=== PATIENT | male | born 1990 | race Caucasian/White ===

== ENCOUNTER 2017-12-19 21:06 | Inpatient (IN) | payer MEDICAID ==
[~2017-12-19] VITALS: Ht 180.3 cm; Wt 70.4 kg
[2017-12-19 22:18] LABS: AMPHET/METH SCREEN,URINE NEGATIVE (NEGATIVE); BARBITURATE SCREEN, URINE NEGATIVE (NEGATIVE); BENZODIAZEPINES SCREEN,URINE NEGATIVE (NEGATIVE); CANNABINOID SCREEN,URINE NEGATIVE (NEGATIVE); COCAINE SCREEN,URINE NEGATIVE (NEGATIVE); METHADONE SCREEN, URINE NEGATIVE (NEGATIVE); OPIATE SCREEN,URINE NEGATIVE (NEGATIVE); PHENCYCLIDINE SCREEN,URINE NEGATIVE (NEGATIVE)
[2017-12-19] MEDS ORDERED: BENZ1TAB10 PO (22:18)
[2017-12-19] MEDS ORDERED: PROP20TA18 PO (22:18)
[2017-12-19] MEDS ORDERED: OLAN10TA3 PO (22:18)
[2017-12-19] MEDS ORDERED: LITH600 PO (22:18)
[2017-12-19 22:20] LABS: BASOPHILS % (AUTO) 0.6 % (0.0-2.0); EOSINOPHILS % (AUTO) 4.8 % (1.0-6.0); HEMATOCRIT 42.1 % (41-53); HEMOGLOBIN 14.8 g/dL (13.5-17.5); LYMPHOCYTES # (AUTO) 1.9 K/uL (1.0-4.8); LYMPHOCYTES % (AUTO) 21.5 % (22.0-44.0); MEAN CORPUSCULAR HEMOGLOBIN 30.4 pg (26.0-34.0); MEAN CORPUSCULAR HGB CONC 35.1 G/dL (31.0-37.0); MEAN CORPUSCULAR VOLUME 87 fL (80-100); MONOCYTES # (AUTO) 0.7 K/uL (0.1-1.0); MONOCYTES % (AUTO) 7.6 % (2.0-9.0); NEUTROPHILS # (AUTO) 5.9 K/uL (1.8-7.7); NEUTROPHILS % (AUTO) 65.5 % (40.0-70.0); PLATELET COUNT (AUTO) 237 K/uL (150-450); RED BLOOD CELL COUNT(AUTO) 4.85 MIL/uL (4.50-5.90); RED CELL DISTRIBUTION WIDTH 12.7 % (11.5-14.5)
[2017-12-19 22:28] LABS: ANION GAP 5 mmol/L (8-16); CALCIUM, TOTAL 9.1 mg/dL (8.8-10.5); CARBON DIOXIDE 30 mmol/L (22-29); CHLORIDE 104 mmol/L (98-107); CREATININE 0.91 mg/dL (0.60-1.30); GLOMERULAR FILTR. RATE CALC > 60 mL/min (>60); GLUCOSE,RANDOM 96 mg/dL (70-110); SODIUM SERUM 139 mmol/L (136-145); UREA NITROGEN, BLOOD 14 mg/dL (7-18)
[2017-12-19 22:33] LABS: ALANINE AMINOTRANSFERASE 18 U/L (12-78); ALBUMIN 4.2 g/dL (3.4-5.0); ALKALINE PHOSPHATASE 83 U/L (46-116); ASPARTATE AMINOTRANSFERASE 17 U/L (15-37); BILIRUBIN,TOTAL 0.5 mg/dL (0.1-1.0); LITHIUM 1.37 mmol/L (0.60-1.20); TOTAL PROTEIN, SERUM 7.4 g/dL (6.4-8.2)
[2017-12-19 22:34] LABS: ACETAMINOPHEN < 2 mcg/mL (10-30); SALICYLATE 1.3 mg/dL (2.8-20.0)
[2017-12-19] MEDS ORDERED: ONDANSETRON HCL 4 MG/2 ML VIAL IVP PRN (23:00)
[2017-12-19] MEDS ORDERED: 0.9% SODIUM CHLORIDE 10 ML SYRINGE IVP PRN (23:00)
[2017-12-19] MEDS ORDERED: ACETAMINOPHEN 325 MG TABLET PO PRN (23:00)
[2017-12-20] VITALS (7 sets, daily range): BP systolic 100–130; BP diastolic 50–75
[2017-12-20] MEDS ORDERED: 0.9% SODIUM CHLORIDE 10 ML SYRINGE IVP PRN (01:15)
[2017-12-20] MEDS ORDERED: ACETAMINOPHEN 325 MG TABLET PO PRN (01:15)
[2017-12-20] MEDS ORDERED: OxyCODONE HCL/ACETAMINOPHEN 5-325 MG TABLET PO PRN ×2 (01:15)
[2017-12-20] MEDS ORDERED: MAGNESIUM HYDROXIDE SUSPENSION 30 ML UDCUP PO PRN (01:15)
[2017-12-20] MEDS ORDERED: ONDANSETRON HCL 4 MG/2 ML VIAL IVP PRN (01:15)
[2017-12-20] MEDS ORDERED: SODIUM CHLORIDE 0.9% 1,000 ML IV SCH (01:15)
[2017-12-20] MEDS: DOCUSATE SODIUM 100 MG CAPSULE PO SCH ×3 (01:15→19:53)
[2017-12-20] MEDS ORDERED: PANTOPRAZOLE SODIUM 40 MG/VIAL IVP SCH (09:00)
[2017-12-20] MEDS ORDERED: DSS100 PO (13:56)
[2017-12-20] MEDS ORDERED: MOM30 PO (13:57)
[2017-12-20] MEDS ORDERED: ACET-784 PO (13:57)
[2017-12-21 05:00] VITALS: BP 111/64
[2017-12-21 07:06] LABS: BASOPHILS % (AUTO) 0.7 % (0.0-2.0); EOSINOPHILS % (AUTO) 3.9 % (1.0-6.0); HEMATOCRIT 41.6 % (41-53); HEMOGLOBIN 14.6 g/dL (13.5-17.5); LYMPHOCYTES # (AUTO) 1.7 K/uL (1.0-4.8); LYMPHOCYTES % (AUTO) 21.9 % (22.0-44.0); MEAN CORPUSCULAR HEMOGLOBIN 31.2 pg (26.0-34.0); MEAN CORPUSCULAR VOLUME 89 fL (80-100); MONOCYTES # (AUTO) 0.7 K/uL (0.1-1.0); MONOCYTES % (AUTO) 8.8 % (2.0-9.0); NEUTROPHILS # (AUTO) 5.1 K/uL (1.8-7.7); NEUTROPHILS % (AUTO) 64.7 % (40.0-70.0); PLATELET COUNT (AUTO) 213 K/uL (150-450); RED BLOOD CELL COUNT(AUTO) 4.67 MIL/uL (4.50-5.90); RED CELL DISTRIBUTION WIDTH 12.9 % (11.5-14.5)
[2017-12-21 07:13] VITALS: BP 115/75
[2017-12-21 07:20] LABS: ANION GAP 5 mmol/L (8-16); CALCIUM, TOTAL 8.5 mg/dL (8.8-10.5); CARBON DIOXIDE 29 mmol/L (22-29); CHLORIDE 105 mmol/L (98-107); GLOMERULAR FILTR. RATE CALC > 60 mL/min (>60); GLUCOSE,RANDOM 93 mg/dL (70-110); POTASSIUM 4.2 mmol/L (3.5-5.1); SODIUM SERUM 139 mmol/L (136-145); UREA NITROGEN, BLOOD 14 mg/dL (7-18)
[2017-12-21] MEDS: DOCUSATE SODIUM 100 MG CAPSULE PO SCH ×2 (08:00→19:46)
[2017-12-21 10:58] VITALS: BP 113/81
[2017-12-21 15:03] VITALS: BP 104/69
[2017-12-21 19:13] VITALS: BP 124/75
[2017-12-21] MEDS: OLANZapine 10 MG TABLET PO SCH (19:45)
[2017-12-22 00:54] VITALS: BP 99/57
[2017-12-22 05:56] VITALS: BP 126/58
[2017-12-22 07:43] VITALS: BP 129/71
[2017-12-22] MEDS: DOCUSATE SODIUM 100 MG CAPSULE PO SCH ×3 (09:00→20:19)
[2017-12-22] MEDS: BENZTROPINE MESYLATE 1 MG TABLET PO SCH (09:19)
[2017-12-22 11:34] VITALS: BP 116/62
[2017-12-22 15:24] VITALS: BP 124/72
[2017-12-22 19:44] VITALS: BP 112/63
[2017-12-22] MEDS: OLANZapine 10 MG TABLET PO SCH (20:03)
[2017-12-23 00:37] VITALS: BP 118/66
[2017-12-23 05:00] VITALS: BP 106/59
[2017-12-23] MEDS: BENZTROPINE MESYLATE 1 MG TABLET PO SCH (08:19)
[2017-12-23 15:46] VITALS: BP 114/62
[2017-12-23 19:30] VITALS: BP 112/60
[2017-12-23] MEDS: DOCUSATE SODIUM 100 MG CAPSULE PO SCH (19:52)
[2017-12-23] MEDS: OLANZapine 10 MG TABLET PO SCH (19:52)
[2017-12-23 23:15] VITALS: BP 108/62
[2017-12-24 03:10] VITALS: BP 110/64
[2017-12-24] MEDS: DOCUSATE SODIUM 100 MG CAPSULE PO SCH (08:00)
[2017-12-24] MEDS: BENZTROPINE MESYLATE 1 MG TABLET PO SCH (08:00)
== END 2017-12-24 14:48 | disposition home or self-care (01) | DRG 817 ==
LOC: EMS 21:06 → 5N 23:05 → 6N 12-20 18:50
PROVIDERS: ADMIT Internal Medicine; ATTEND Internal Medicine
DX: T43.592A Poisoning by other antipsychotics and neuroleptics, intentional self-harm, initial encounter (principal); F25.0 Schizoaffective disorder, bipolar type; F29 Unspecified psychosis not due to a substance or known physiological condition; Y92.89 Other specified places as the place of occurrence of the external cause; F41.9 Anxiety disorder, unspecified; Z81.8 Family history of other mental and behavioral disorders; Z87.891 Personal history of nicotine dependence; Z91.5 Personal history of self-harm; Z28.21 Immunization not carried out because of patient refusal
CPT/HCPCS: 93005; 96374; C9113; G0378; G0480; G0481; J7030

== ENCOUNTER 2018-06-03 19:01 | Emergency (ER) | payer MEDICAID ==
[~2018-06-03] VITALS: Ht 180.3 cm; Wt 72.7 kg
[~2018-06-03 19:01] MED LIST: ACET-784 PO; DSS100 PO; MOM30 PO
[2018-06-03] MEDS ORDERED: GABA-531 PO (19:22)
[2018-06-03] MEDS ORDERED: ARIP882S IM (19:22)
[2018-06-03] MEDS ORDERED: CefTRIAXone 1 GM/DEXTROSE 50 ML IV ONE (20:15)
[2018-06-03 20:28] LABS: BASOPHILS % (AUTO) 0.5 % (0.0-2.0); EOSINOPHILS % (AUTO) 3.3 % (1.0-6.0); HEMOGLOBIN 14.2 g/dL (13.5-17.5); LYMPHOCYTES # (AUTO) 1.6 K/uL (1.0-4.8); LYMPHOCYTES % (AUTO) 22.2 % (22.0-44.0); MEAN CORPUSCULAR HEMOGLOBIN 29.1 pg (26.0-34.0); MEAN CORPUSCULAR HGB CONC 33.9 G/dL (31.0-37.0); MEAN CORPUSCULAR VOLUME 86 fL (80-100); MONOCYTES # (AUTO) 0.7 K/uL (0.1-1.0); MONOCYTES % (AUTO) 9.8 % (2.0-9.0); NEUTROPHILS # (AUTO) 4.5 K/uL (1.8-7.7); NEUTROPHILS % (AUTO) 64.2 % (40.0-70.0); PLATELET COUNT (AUTO) 229 K/uL (150-450); RED BLOOD CELL COUNT(AUTO) 4.89 MIL/uL (4.50-5.90); RED CELL DISTRIBUTION WIDTH 12.9 % (11.5-14.5)
[2018-06-03 20:35] LABS: ANION GAP 9 mmol/L (8-16); CALCIUM, TOTAL 9.2 mg/dL (8.8-10.5); CARBON DIOXIDE 28 mmol/L (22-29); CHLORIDE 104 mmol/L (98-107); CREATININE 0.77 mg/dL (0.60-1.30); GLOMERULAR FILTR. RATE CALC > 60 mL/min (>60); GLUCOSE,RANDOM 83 mg/dL (70-110); POTASSIUM 3.9 mmol/L (3.5-5.1); SODIUM SERUM 141 mmol/L (136-145); UREA NITROGEN, BLOOD 14 mg/dL (7-18)
[2018-06-03 20:40] LABS: ALANINE AMINOTRANSFERASE 19 U/L (12-78); ALBUMIN 3.6 g/dL (3.4-5.0); ALKALINE PHOSPHATASE 69 U/L (46-116); ASPARTATE AMINOTRANSFERASE 18 U/L (15-37); BILIRUBIN,TOTAL 0.2 mg/dL (0.1-1.0); TOTAL PROTEIN, SERUM 7.2 g/dL (6.4-8.2)
[2018-06-03 21:44] VITALS: BP 131/74
== END 2018-06-03 22:13 | disposition home or self-care (01) ==
LOC: EMS 19:02
DX: L02.413 Cutaneous abscess of right upper limb (principal); L03.113 Cellulitis of right upper limb; R03.0 Elevated blood-pressure reading, without diagnosis of hypertension; F20.9 Schizophrenia, unspecified; F17.210 Nicotine dependence, cigarettes, uncomplicated; Z88.5 Allergy status to narcotic agent
CPT/HCPCS: 36415; 80053; 85025; 96365; 99283; J0696

== ENCOUNTER 2023-11-20 20:57 | Inpatient (IN) | payer MEDICAID, OTHER ==
[~2023-11-20] VITALS: Ht 182.9 cm; Wt 61.2 kg
[~2023-11-20 20:57] MED LIST changes: -ACET-784 PO; +ARIP882S2 IM; -DSS100 PO; +GABA-1181 PO; -MOM30 PO
[2023-11-20 21:10] VITALS: O2SAT 98
[2023-11-20 23:44] LABS: BASOPHILS % (AUTO) 0.4 % (0.0-2.0); EOSINOPHILS % (AUTO) 0.5 % (1.0-6.0); HEMATOCRIT 31.5 % (41-53); HEMOGLOBIN 10.7 g/dL (13.5-17.5); LYMPHOCYTES # (AUTO) 1.1 K/uL (1.0-4.8); LYMPHOCYTES % (AUTO) 12.6 % (22.0-44.0); MEAN CORPUSCULAR HEMOGLOBIN 29.7 pg (26.0-34.0); MEAN CORPUSCULAR HGB CONC 33.9 G/dL (31.0-37.0); MEAN CORPUSCULAR VOLUME 88 fL (80-100); MONOCYTES # (AUTO) 0.7 K/uL (0.1-1.0); MONOCYTES % (AUTO) 8.2 % (2.0-9.0); NEUTROPHILS # (AUTO) 6.8 K/uL (1.8-7.7); NEUTROPHILS % (AUTO) 78.3 % (40.0-70.0); PLATELET COUNT (AUTO) 350 K/uL (150-450); RED CELL DISTRIBUTION WIDTH 13.5 % (11.5-14.5); WHITE BLOOD COUNT (AUTO) 8.7 K/uL (4.5-11.0)
[2023-11-20 23:47] LABS: ANION GAP 7 mmol/L (8-16); CALCIUM, TOTAL 7.8 mg/dL (8.8-10.5); CARBON DIOXIDE 28 mmol/L (22-29); CHLORIDE 101 mmol/L (98-107); CREATININE 0.65 mg/dL (0.60-1.30); GLOMERULAR FILTR. RATE CALC > 60 mL/min (>60); GLUCOSE,RANDOM 135 mg/dL (70-110); POTASSIUM 3.2 mmol/L (3.5-5.1); SODIUM SERUM 136 mmol/L (136-145); UREA NITROGEN, BLOOD 14 mg/dL (7-18)
[2023-11-20 23:55] LABS: ALCOHOL, BLOOD (SERUM) < 3 mg/dL (0-10)
[2023-11-21] MEDS: POTASSIUM CHLORIDE 20 MEQ ER TABLET PO ONE (02:06)
[2023-11-21] MEDS: CEPHALEXIN MONOHYDRATE 500 MG CAPSULE PO ONE ×2 (02:06→09:52)
[2023-11-21 03:03] LABS: COVID AG,FIA SOURCE NASAL SWAB
[2023-11-21] MEDS ORDERED: OLANZapine 5 MG RAPDIS TABLET PO PRN (03:30)
[2023-11-21 03:43] LABS: SARS-COV2 (COVID) ANTIGEN,FIA Negative (Negative)
[2023-11-21] MEDS ORDERED: CloNIDine HCL 0.1 MG TABLET PO PRN (15:15)
[2023-11-21] MEDS ORDERED: BENZOCAINE/MENTHOL LOZENGE PO PRN (15:15)
[2023-11-21] MEDS ORDERED: ACETAMINOPHEN 325 MG TABLET PO PRN (15:15)
[2023-11-21] MEDS ORDERED: IBUPROFEN 600 MG TABLET PO PRN (15:15)
[2023-11-21] MEDS ORDERED: ONDANSETRON 4 MG TABLET PO PRN (15:15)
[2023-11-21] MEDS ORDERED: LOPERAMIDE HCL 2 MG CAPSULE PO PRN (15:15)
[2023-11-21] MEDS ORDERED: DOCUSATE SODIUM 100 MG CAPSULE PO PRN (15:15)
[2023-11-21] MEDS ORDERED: MAG HYDROX/ALUMINUM HYD/SIMETH ES 30 ML SUSPENSION UDCUP PO PRN (15:15)
[2023-11-21] MEDS ORDERED: OMEPRAZOLE 20 MG CAPSULE PO PRN (15:15)
[2023-11-21] MEDS ORDERED: MAGNESIUM HYDROXIDE SUSPENSION 30 ML UDCUP PO PRN (15:15)
[2023-11-21] MEDS ORDERED: NICOTINE POLACRILEX 2 MG LOZENGE PO PRN (15:15)
[2023-11-21] MEDS ORDERED: ALBUTEROL SULFATE HFA 90 MCG/PUFF 8 GM INHALER IH PRN (15:15)
[2023-11-21] MEDS ORDERED: PETROLATUM,WHITE 28 GM JELLY TP PRN (15:15)
[2023-11-21 16:46] VITALS: BP 108/72; PULSE 79; RESP 18; TEMP 97.2; O2SAT 98
[2023-11-21] MEDS: BACITRACIN 28 GM OINTMENT TP SCH (17:45)
[2023-11-21] MEDS: OLANZapine 10 MG TABLET PO SCH (20:10)
[2023-11-21] MEDS: MIRTAZAPINE 15 MG TABLET PO SCH (20:10)
[2023-11-21 21:36] VITALS: BP 115/68; PULSE 76; RESP 18; TEMP 98.2; O2SAT 96
[2023-11-22 10:52] VITALS: BP 122/87; PULSE 121; RESP 19; TEMP 96.6; O2SAT 97
[2023-11-22] MEDS: MULTIVITAMINS WITH MINERALS, THERAPEUTIC TABLET PO SCH (12:33)
[2023-11-22] MEDS: FOLIC ACID 1 MG TABLET PO SCH (12:33)
[2023-11-22 20:00] VITALS: BP 115/60; PULSE 97; RESP 18; TEMP 96.5; O2SAT 97
[2023-11-23 08:10] VITALS: RESP 17
[2023-11-23 09:14] LABS: APPEARANCE,URINE CLEAR (CLEAR); BILIRUBIN,URINE NEGATIVE (NEGATIVE); COLOR,URINE LIGHT YELLOW (YELLOW); GLUCOSE, URINE (UA) NEGATIVE (NEGATIVE); KETONES,URINE NEGATIVE (NEGATIVE); LEUKOCYTE ESTERASE ,URINE NEGATIVE (NEGATIVE); NITRATE,URINE NEGATIVE (NEGATIVE); OCCULT BLOOD,URINE NEGATIVE (NEGATIVE); PH,URINE 6.5 (5.0-8.0); PH,URINE DRUG SCREEN 6.5 (5.0-8.0); PROTEIN,URINE NEGATIVE (NEGATIVE); UROBILINOGEN,URINE <=1.0 mg/dL (<=1.0)
[2023-11-23 09:25] LABS: ALCOHOL, URINE DRUG SCREEN NEGATIVE (NEGATIVE); AMPHET/METH SCREEN,URINE NEGATIVE (NEGATIVE); BARBITURATE SCREEN, URINE NEGATIVE (NEGATIVE); BENZODIAZEPINES SCREEN,URINE NEGATIVE (NEGATIVE); CANNABINOID SCREEN,URINE NEGATIVE (NEGATIVE); COCAINE SCREEN,URINE NEGATIVE (NEGATIVE); METHADONE SCREEN, URINE NEGATIVE (NEGATIVE); OPIATE SCREEN,URINE NEGATIVE (NEGATIVE); PHENCYCLIDINE SCREEN,URINE NEGATIVE (NEGATIVE)
[2023-11-23 21:24] VITALS: BP 124/64; PULSE 100; RESP 18; TEMP 97.1; O2SAT 99
[2023-11-24 08:09] VITALS: BP 112/66; PULSE 62; RESP 17; TEMP 98; O2SAT 96
[2023-11-24 09:51] LABS: C.DIFF GDH ANTIGEN, Stool Negative (Negative); C.DIFF TOXINS A&B, Stool Negative (Negative)
[2023-11-24 20:08] VITALS: BP 126/82; PULSE 107; RESP 16; TEMP 96.4; O2SAT 99
[2023-11-25 08:12] VITALS: BP 138/78; PULSE 97; RESP 18; TEMP 96.8; O2SAT 97
[2023-11-25 09:11] LABS: ANION GAP 2 mmol/L (8-16); CALCIUM, TOTAL 8.6 mg/dL (8.8-10.5); CARBON DIOXIDE 28 mmol/L (22-29); CHLORIDE 106 mmol/L (98-107); CREATININE 0.66 mg/dL (0.60-1.30); GLOMERULAR FILTR. RATE CALC > 60 mL/min (>60); GLUCOSE,RANDOM 84 mg/dL (70-110); POTASSIUM 4.5 mmol/L (3.5-5.1); SODIUM SERUM 136 mmol/L (136-145); UREA NITROGEN, BLOOD 10 mg/dL (7-18)
[2023-11-25] MEDS: LORazepam 2 MG/ML VIAL IM ONE (14:45)
[2023-11-25] MEDS: HALOPERIDOL LACTATE 5 MG/ML VIAL IM ONE (14:46)
[2023-11-25] MEDS: DiphenhydrAMINE HCL 50 MG/ML VIAL IM ONE (14:47)
[2023-11-26 08:16] VITALS: BP 120/70; PULSE 89; RESP 18; TEMP 96.4; O2SAT 97
[2023-11-26] MEDS: ZOLPIDEM TARTRATE 10 MG TABLET PO PRN (20:29)
[2023-11-26 20:51] VITALS: BP 136/74; PULSE 104; RESP 18; TEMP 97.6; O2SAT 97
[2023-11-27 08:09] VITALS: BP 142/73; PULSE 100; RESP 16; TEMP 97; O2SAT 100
[2023-11-27 20:10] VITALS: BP 115/66; PULSE 116; RESP 17; TEMP 98; O2SAT 100
[2023-11-28 08:15] VITALS: RESP 17
[2023-11-28 21:09] VITALS: RESP 16
[2023-11-29 15:20] VITALS: BP 130/71; PULSE 81; RESP 17; TEMP 97.4
[2023-11-29 20:09] VITALS: BP 108/64; PULSE 103; RESP 18; TEMP 96.7; O2SAT 100
[2023-11-29] MEDS: LORazepam 2 MG TABLET PO PRN (22:43)
[2023-11-30 08:10] VITALS: BP 123/68; PULSE 99; RESP 18; TEMP 97.7; O2SAT 100
[2023-11-30 20:10] VITALS: BP 125/83; PULSE 105; RESP 16; TEMP 97.5; O2SAT 98
[2023-12-01 08:01] VITALS: BP 131/84; PULSE 99; RESP 18; TEMP 98.1; O2SAT 100
[2023-12-01 20:15] VITALS: BP 121/71; PULSE 97; RESP 16; TEMP 97.6; O2SAT 97
[2023-12-02 08:10] VITALS: BP 110/78; PULSE 98; RESP 18; TEMP 98.2; O2SAT 96
[2023-12-02] MEDS ORDERED: BISMUTH SUBSALICYLATE 525 MG/30 ML SUSPENSION UDCUP PO PRN (10:30)
[2023-12-02] MEDS: LOPERAMIDE HCL 2 MG CAPSULE PO SCH (16:44)
[2023-12-02] MEDS: CALCIUM CARBONATE 500 MG CHEWABLE TABLET CHEW SCH (16:45)
[2023-12-02 20:07] VITALS: BP 138/63; PULSE 100; RESP 18; TEMP 97.2; O2SAT 97
[2023-12-03 08:50] VITALS: BP_SYST 107; BP_SYST 134; BP_DIAS 63; BP_DIAS 68; PULSE 73; PULSE 97; RESP 18; TEMP 97.2; TEMP 97.8; O2SAT 100; O2SAT 99
[2023-12-03] MEDS ORDERED: OLAN10TA74 PO (16:10)
== END 2023-12-03 18:21 | disposition home or self-care (01) | DRG 750 ==
LOC: EMS 20:57 → B2S 11-21 10:11
PROVIDERS: ADMIT Psychiatry & Neurology Psychiatry; ATTEND Psychiatry & Neurology Psychiatry
DX: F25.1 Schizoaffective disorder, depressive type (principal); F10.231 Alcohol dependence with withdrawal delirium; R45.851 Suicidal ideations; E87.6 Hypokalemia; F41.9 Anxiety disorder, unspecified; Z20.822 Contact with and (suspected) exposure to COVID-19; G47.00 Insomnia, unspecified; K21.9 Gastro-esophageal reflux disease without esophagitis; K59.00 Constipation, unspecified; Z88.8 Allergy status to other drugs, medicaments and biological substances; Z87.891 Personal history of nicotine dependence; L03.119 Cellulitis of unspecified part of limb
CPT/HCPCS: 80048; 80307; 81003; 85025; 87324; 87449; 99285; G0480; J1200; J1630; J2060